=== PATIENT | male | born 1955 | race Caucasian/White ===

== ENCOUNTER 2016-12-22 08:16 | Emergency (ER) | payer BC ==
[2016-12-22 08:52] VITALS: BP 137/79; PULSE 77; TEMP 98.3; BMI 29.6
[2016-12-22] MEDS ORDERED: KETOROLAC TROMETHAMINE 60 MG/2 ML VIAL IM ONE (09:14)
[2016-12-22] MEDS ORDERED: KETOROLAC TROMETHAMINE 60 MG/2 ML VIAL ONE (09:16)
--- NOTE | 2016-12-22 09:19 | PDOC ---
History of Present Illness - General Chief Complaint: Pain, Acute Stated Complaint: RT SHOULDER PAIN Time Seen by Provider: 12/22/16 08:59 History Source: Patient Exam Limitations: No Limitations - History of Present Illness Initial Comments: 12/22/16 09:17 Patient here with complaints of right shoulder pain. has known rotator cuff injury. before his open heart surgery November 25 sustained an injury at work while pulling out a heavy ramp from his truck. MRI revealed a rotator cuff problem and Dr. Jaden Sidhu, orthopedist following him for that problem. needed to have a valve replacement surgery for any shoulder issues could be evaluated and treated. Since that time had minimal problems however states yesterday woke up with worsened pain and mild immobility to his right shoulder. Denies fever, denies redness, denies any changes in exercise or activity. Takes oxycodone for his heart surgery pain but states did not improve much. Numbness or tingling to hand, no other areas of pain or problem Occurred: reports: yesterday Severity: reports: mild, moderate Pain Location: reports: upper extremity (right shoulder) Past History - Travel Traveled outside of the country in the last 30 days: No Close contact w/someone who was outside of country & ill: No - Past Medical History Allergies/Adverse Reactions: Allergies Allergy/AdvReac Type Severity Reaction Status Date / Time No Known Drug Allergies Allergy Verified 12/22/16 08:40 Home Medications: Ambulatory Orders Atorvastatin Ca [Lipitor] 10 mg PO DAILY 05/23/16 Carvedilol 6.25 mg PO BID 05/23/16 Anemia: No Asthma: No Cancer: No Cardiac Disorders: Yes (heart murmur,aortic valve replacement-11/28/2016) CVA: No COPD: No CHF: No Dementia: No Diabetes: No GI Disorders: No Disorders: Yes (kidney stones) HTN: Yes Hypercholesterolemia: Yes Liver Disease: No Seizures: No Thyroid Disease: No - Surgical History Abdominal Surgery: No Appendectomy: No Cardiac Surgery: Yes (aortic valve replacement-11/28/2016) Cholecystectomy: No Lung Surgery: No Neurologic Surgery: No Orthopedic Surgery: Yes (KNEE SCOPE B/L) - Immunization History Immunization Up to Date: Yes - Psycho/Social/Smoking Cessation Hx Anxiety: No Suicidal Ideation: No Smoking History: Former smoker Have you smoked in the past 12 months: No If you are a former smoker, when did you quit?: 30 YEARS AGO Information on smoking cessation initiated: No Hx Alcohol Use: No Drug/Substance Use Hx: No Substance Use Type: None *Physical Exam - Vital Signs Last Vital Signs Temp Pulse Resp BP Pulse Ox 98.3 F 77 16 137/79 96 12/22/16 08:40 12/22/16 08:40 12/22/16 08:40 12/22/16 08:40 12/22/16 08:40 - Physical Exam General Appearance: Yes: Appropriately Dressed, Apparent Distress HEENT: positive: [place], Normal ENT Inspection, TMs Normal, Pharynx Normal Neck: positive: Supple. negative: Tender Respiratory/Chest: positive: Lungs Clear, Normal Breath Sounds (healing midline scar) Gastrointestinal/Abdominal: positive: Soft Extremity: positive: Normal Capillary Refill, Tender, Swelling. negative: Normal Inspection (swelling noted to shoulder capsule, with point tenderness at distal clavicle and soft tissues of shoulder girdle. Has no scapular pain, no clavicular pain, range of motion is very limited to proximally 45 abduction and forward flexion. Strong grasp flexion and extension at wrist and elbow. Able to supinate and pronate at wrist without elbow tenderness. 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 Will give 1 dose Toradol here for anti-inflammatory purpose, instructed to continue range of motion exercises keep shoulder mobile, and attempt to see Dr. Quinteros for shoulder patient sooner than the as scheduled *DC/Admit/Observation/Transfer Diagnosis at time of Disposition: Shoulder pain, right Qualifiers: Chronicity: unspecified Qualified Code(s): M25.511 - Pain in right shoulder - Discharge Dispostion Disposition: HOME Condition at time of disposition: Stable Admit: No - Patient Instructions Printed Discharge Instructions: DI for Shoulder Tendinopathy Additional Instructions: Rest, ice to area on and off for 15 minutes 4-6 times a day Avoid heavy lifting or exercise until pain and swelling is resolved or until further directed Keep area highly elevated to reduce swelling Use splints/Corey wrap as directed Followup with orthopedist in one to 2 days if not improving, if significantly improved may wait one week for followup with orthopedist May use Tylenol 2 -500mg tablets every 6 hours as needed for pain
== END 2016-12-22 09:43 | disposition home or self-care (01) ==
LOC: JER 08:16 → JERFT 08:16
PROC: 3E0233Z Introduction of Anti-inflammatory into Muscle, Percutaneous Approach (ICD-10-PCS; principal; 2016-12-22)
DX: M25.511 Pain in right shoulder (principal); Z87.891 Personal history of nicotine dependence; I10 Essential (primary) hypertension; R01.1 Cardiac murmur, unspecified
CPT/HCPCS: 99281-25

== ENCOUNTER 2019-06-30 09:30 | Day surgery (SDC) | payer BC ==
[2019-06-27 11:10] VITALS: BMI 33.7
[2019-06-30 12:32] VITALS: TEMP 97.6
--- NOTE | 2019-06-30 14:12 | OP ---
Operative Note - Note: Operative Date: 06/30/19 Pre-Operative Diagnosis: right renal stone Operation: right eswl Findings: 4 mm right lower pole stone Post-Operative Diagnosis: Same as Pre-op Surgeon: Donta Varela Anesthesia: Fractional
[2019-06-30 14:44] VITALS: BP 130/63; PULSE 57
--- NOTE | 2019-06-30 15:28 | OP ---
DATE OF OPERATION: 06/30/2019 PREOPERATIVE DIAGNOSIS: Right renal stone. POSTOPERATIVE DIAGNOSIS: Right renal stone. PROCEDURE: Right extracorporeal shock-wave lithotripsy. ATTENDING: Charlie Tenorio MD ANESTHESIA: Fractional. DESCRIPTION OF PROCEDURE: Patient was brought in the operating room, placed in supine position on the operating room table. Ultrasonography and fluoroscopy were performed. A 4-mm right lower pole stone was identified. At this point, general anesthesia and preoperative antibiotics were administered. Shock-wave lithotripsy was then started. Excellent fragmentation of the stone was noted under real time ultrasonography and fluoroscopy, and no complications were noted. The patient tolerated the procedure very well. CHARLIE TENORIO M.D. /[id number]
== END 2019-06-30 13:45 | disposition home or self-care (01) ==
LOC: JASU-SURG 09:30
PROVIDERS: ATTEND Urology
PROC: 0TF3XZZ Fragmentation in Right Kidney Pelvis, External Approach (ICD-10-PCS; principal; 2019-06-30 11:45)
DX: N20.0 Calculus of kidney (principal)

== ENCOUNTER 2021-06-13 04:38 | Day surgery (SDC) | payer OTHER, MEDICARE ==
[2021-06-09 09:49] VITALS: BMI 30.4
[2021-06-13] MEDS ORDERED: MIDAZOLAM HCL 2 MG/2 ML SINGLE DOSE VIAL ONE (11:33)
[2021-06-13] MEDS ORDERED: PROPOFOL 20 ML ONE (13:07)
[2021-06-13 14:39] VITALS: BP 128/84; PULSE 63; TEMP 97.8
== END 2021-06-13 14:30 | disposition home or self-care (01) ==
LOC: JASU-SURG 04:38
PROVIDERS: ATTEND Urology
PROC: 0TF4XZZ Fragmentation in Left Kidney Pelvis, External Approach (ICD-10-PCS; principal; 2021-06-13 11:30)
DX: N20.0 Calculus of kidney (principal)